=== PATIENT | female | born 1980 | race Caucasian/White ===

== ENCOUNTER 2020-08-07 13:34 | Outpatient (REF) | payer OTHER, SELFPAY ==
--- NOTE | ~2020-08-07 | US_ITS ---
EXAMINATION: US PELVIS CLINICAL INFORMATION: Right lower quadrant COMPARISON: None TECHNIQUE: Transabdominal pelvic ultrasound FINDINGS: The uterus is enlarged and measures 10.5 x 6.1 x 7.2 cm in dimension. There are multiple uterine masses probably representing fibroids, at least 4. The largest measures 8.5, 7.15 7.3 cm and is pedunculated or exophytic to the right upper uterine body and fundus. This may account for palpable right lower quadrant mass. There are 3 exophytic left uterine fibroids measuring 6 x 4.6 x 5.6 cm adjacent to the left uterine fundus, a 5.4 x 4.3 x 5.2 cm adjacent to the left uterine body and 3.9 x 3.8 x 3.7 cm adjacent to the left lower uterine segment and upper cervix. Endometrial thickness is normal measuring 0.8 cm. The ovaries are normal. The right ovary measures 2.8 x 1.5 x 2.4 cm and the left ovary measures 2.8 x 1.6 x 1.7 cm. There is no fluid in the pelvis. US/US pelvic complete IMPRESSION: Enlarged fibroid uterus. Largest fibroid is a 8.6 x 7.1 x 7.3 cm pedunculated fibroid exophytic to the right uterine fundus and upper body. This may account for palpable right lower quadrant mass.
== END 2020-08-07 13:35 | disposition home or self-care (01) ==
LOC: HO.US 13:34
PROVIDERS: PCP Internal Medicine; Visit Provider Internal Medicine
DX: R19.03 Right lower quadrant abdominal swelling, mass and lump (principal)
CPT/HCPCS: 76856

== ENCOUNTER 2021-01-16 12:24 | Outpatient (REF) | payer OTHER, SELFPAY ==
[2021-01-16 14:54] LABS: Thyroid Stimulating Hormone 0.88 uIU/mL (0.32-4.0)
== END 2021-01-16 12:25 | disposition home or self-care (01) ==
LOC: HO.10HDL 12:24
PROVIDERS: Visit Provider Internal Medicine
DX: R00.2 Palpitations (principal); D25.9 Leiomyoma of uterus, unspecified
CPT/HCPCS: 36415; 84443

== ENCOUNTER 2021-03-21 12:41 | Outpatient (REF) | payer OTHER, SELFPAY ==
--- NOTE | ~2021-03-21 | US_ITS ---
EXAMINATION: US PELVIS CLINICAL INFORMATION: Pelvic/right lower quadrant mass. COMPARISON: Previous pelvic ultrasound August 2020 TECHNIQUE: Ultrasound of the pelvis is performed using both transabdominal and transvaginal transducers along with Doppler. Transvaginal imaging is performed due to inadequate visualization transabdominally. The patient could not tolerate transvaginal imaging. FINDINGS: The uterus is slightly enlarged and measures 11 x 5.5 x 11 cm. There are at least five uterine fibroids seen. There is a 6.8 x 5 x 6.7 cm subserosal left upper uterine body or fundal/cornual fibroid. There is a 2.4 x 1.6 x 2 cm submucosal left uterine body fibroid adjacent to the endometrium. There is a 5.9 x 3.8 x 3.9 cm subserosal left lower uterine segment fibroid. There is a 7.8 x 5.9 x 9.6 cm right upper uterine body or fundal exophytic or pedunculated fibroid. There is a 6.2 x 4.2 x 4.4 cm subserosal left uterine body fibroid. Endometrial thickness measures 1 cm. The right ovary is normal-appearing and measures 2.6 x 1.2 x 1.4 cm. The left ovary is not seen. There is a small amount of fluid in the pelvis. US/US pelvic and transvaginal IMPRESSION: Enlarged fibroid uterus. There is a newly appreciated 2.4 x 1.6 x 2 cm submucosal fibroid adjacent to the endometrium. Otherwise, fibroids do not appear appreciably changed. Normal-appearing right ovary. Left ovary not seen. Small amount of fluid in the pelvis.
== END 2021-03-21 12:42 | disposition home or self-care (01) ==
LOC: HO.US 12:41
PROVIDERS: PCP Internal Medicine; Visit Provider Internal Medicine
DX: R19.03 Right lower quadrant abdominal swelling, mass and lump (principal)
CPT/HCPCS: 76830; 76856

== ENCOUNTER 2021-06-21 08:33 | Outpatient (REF) | payer OTHER, SELFPAY ==
--- NOTE | ~2021-06-21 | US_ITS ---
EXAMINATION: US ABDOMEN COMPLETE CLINICAL INFORMATION: Epigastric discomfort. COMPARISON: None TECHNIQUE: Real-time imaging of the abdominal viscera. FINDINGS: PANCREAS: Normal. ABDOMINAL AORTA: The proximal, mid, and distal segments are normal in caliber. INFERIOR VENA CAVA: Visualized portions are normal. LIVER: The liver is normal in size. The liver contour is normal. Parenchymal echogenicity is normal. Multiple simple and minimally complex cysts scattered throughout the liver, largest measures 2.6 cm right lobe. There is no intrahepatic biliary duct dilatation seen. GALLBLADDER: Normal. The gallbladder is physiologically distended without evidence of stones, sludge, polyps, wall thickening or pericholecystic fluid. COMMON BILE DUCT: Normal in caliber measuring 0.4 cm in diameter. RIGHT KIDNEY: Normal. No hydronephrosis. No renal calculi or focal parenchymal lesions. The kidney measures 10.4 cm in maximum dimension. LEFT KIDNEY: Normal. No hydronephrosis. No renal calculi or focal parenchymal lesions. The kidney measures 10.0 cm in maximum dimension. SPLEEN: Normal. The spleen measures 7.6 cm in maximum dimension. FREE FLUID: None. US/US abdomen complete IMPRESSION: Multiple benign hepatic cysts. Exam otherwise unremarkable.
== END 2021-06-21 08:34 | disposition home or self-care (01) ==
LOC: HO.US 08:33
PROVIDERS: Visit Provider Internal Medicine
DX: R10.13 Epigastric pain (principal)
CPT/HCPCS: 76700

== ENCOUNTER 2021-06-27 08:56 | Day surgery (SDC) | payer OTHER, SELFPAY ==
[2021-06-21 13:40] VITALS: BMI 19.1
[2021-06-27 09:13] LABS: UPreg QC Valid YES; Urine Pregnancy NEGATIVE (NEGATIVE)
[2021-06-27 09:23] VITALS: BP 118/74; PULSE 108; RESP 18; TEMP 37.6; O2SAT 98; BMI 18.7
--- NOTE | 2021-06-27 10:19 | HO.ANESPROP2 ---
HPI - Anesthesia Eval Consult details Narrative: 40 yo female patient for EGD, Colonoscopy [facility] Past Medical History Medical History GERD (gastroesophageal reflux disease) History of tachycardia On beta nestor at home Family History Family history of problems with anesthesia: No Surgical History Surgical History No pertinent past surgical history History of Problems with Anesthesia: No Social History Social History Patient Tobacco Use Status: Never used Tobacco Use of substances other than those prescribed or required for medical reasons: No Are you DNR?: No Advance Directives: No Advance Directives Information Provided: Yes Recently lost weight without trying: No Patient : No (ucg) Meds Allergies Allergy/AdvReac Type Severity Reaction Status Date / Time No Known Allergies Allergy Verified 06/21/21 13:29 Active Medications: Current Medications Sodium Biphosphate/Sodium Phosphate (Sodium Phosphate,Parker-Dibasic 133 Ml Enema) 133 ml [place] ONCE PRN PRN Reason: Poor Colonoscopy Prep Results Home Medications Medication Instructions Recorded Confirmed Last Taken Type metoprolol succinate 25 mg 1 tab PO DAILY 06/21/21 06/27/21 06/27/21 History tablet,extended release 24 hr omeprazole 20 mg capsule,delayed 20 mg PO DAILY 06/21/21 06/21/21 Unknown History release Exam Exam Date and Time: June 27, 2021 1019 Height,Weight and Vital Signs: Height 5 ft Weight 43.545 kg Last Vital Signs Temp 99.7 F 06/27/21 09:23 Pulse 108 H 06/27/21 09:23 Resp 18 06/27/21 09:23 BP 118/74 06/27/21 09:23 Pulse Ox 98 06/27/21 09:23 Pertinent Lab Results Pertinent Lab Results: Laboratory Tests 06/27/21 08:59 Urine Test NEGATIVE Assessment and Plan Final Anesthetic Review Family History of Problems with Anesthesia: No History of Problems with Anesthesia: No
[2021-06-27] MEDS: Lactated Ringers 1,000 ML 100 ML IVCONT (11:04)
[2021-06-27 12:15] VITALS: BP 102/54; PULSE 103; RESP 16; TEMP 36.4; O2SAT 100
--- NOTE | 2021-06-27 12:23 | PM.OP ---
Brief Operative Note Date of Service: 06/27/21 Pre-op diagnosis: GERD, Screening Post-op diagnosis: other (Hiatal hernia, R/O celiac disease, Internal hemorrhoids) Procedure: EGD with biopsies, Colonoscopy to the cecum and TI Surgeon: Salvador Cain Anesthesia: MAC Was an Cleaning Team Member used for this Procedure?: No Estimated blood loss (mL): 2.0 Pathology: other (A. Descending duodenum B. Gastric antrum C. EG Junction at 33cm) Condition: stable Disposition: PACU
[2021-06-27 12:30] VITALS: BP 106/69; PULSE 113; RESP 16; O2SAT 99
[2021-06-27 12:45] VITALS: BP 109/76; PULSE 96; PULSE 99; RESP 16; O2SAT 99
--- NOTE | 2021-06-27 23:09 | OP_ITS ---
SURGEON: Salvador Cain MD INDICATIONS: The patient presents for evaluation of gastroesophageal reflux, abdominal discomfort, family history of colon cancer, and colorectal cancer screening. Full consent has been obtained from her for both procedures, including risks of bleeding and perforation. PREOPERATIVE DIAGNOSIS: POSTOPERATIVE DIAGNOSIS: PROCEDURE PERFORMED: Esophagogastroduodenoscopy with biopsies, and colonoscopy to the cecum and terminal ileum. ESTIMATED BLOOD LOSS: COMPLICATIONS: ANESTHESIA: Monitored anesthesia care. ASSISTANTS: SPECIMENS: PREOPERATIVE DIAGNOSES: Gastroesophageal reflux, abdominal discomfort, family history of colon cancer, and colorectal cancer screening. POSTOPERATIVE DIAGNOSES: Gastroesophageal reflux, abdominal discomfort, family history of colon cancer, and colorectal cancer screening, hiatal hernia, rule out celiac disease, internal hemorrhoids. DESCRIPTION OF PROCEDURE: The patient was placed in the left lateral decubitus position. The Olympus video gastroscope was passed in the posterior oropharynx and upper esophagus under direct vision. The scope was passed slowly to the distal esophagus. The gastroesophageal junction appeared at 33 cm. There was some slight irregularity and edema, as well as 1 area of some slight irregularity. There was no evidence of esophagitis nor any definitive evidence of Barajas's mucosa. The scope entered the stomach. There was a small hiatal hernia. The hiatal hernia mucosa appeared normal. The scope was advanced to the pylorus and the duodenum was cannulated to the descending portion. The duodenum including the bulb appeared normal without mass or ulceration. Biopsies were obtained at the 2nd and 3rd portions of duodenum. The scope was withdrawn back into the stomach. The gastric antrum and body appeared normal with good peristalsis. Biopsies were obtained from the gastric antrum. The scope was retroflexed visualizing the proximal stomach carefully, which appeared normal, without any sign of mass or ulceration. The scope was straightened and withdrawn back into the esophagus. Biopsies were obtained at the EG junction at 33 cm. Proximal to this, the esophageal mucosa appeared normal. The scope was withdrawn from the patient. She was turned around for the colonoscopy. The digital rectal exam revealed no abnormalities. The Olympus video pediatric colonoscope was entered into the rectum and advanced easily to the cecum. Once in the cecum, I did identify normal-appearing cecal pouch with appendiceal orifice and a normal-appearing ileocecal valve. The terminal ileum was cannulated and appeared normal. The scope was withdrawn back in the colon. The entire cecum and ileocecal valve appeared normal. The scope was slowly withdrawn assessing all mucosal surfaces carefully. Preparation was excellent. I did not visualize any sign of polyps, colitis, or angiodysplasia. In the rectum, scope was retroflexed visualizing some small internal hemorrhoids, but no other pathology. The rectal mucosa appeared normal. The scope was straightened and withdrawn from the patient. She tolerated both procedures well and was returned to recovery area in stable condition. IMPRESSION: 1. Hiatal hernia, gastroesophageal reflux. 2. Rule out celiac disease. 3. Internal hemorrhoids. PLAN: The results of the biopsies will be checked. In regard to the upper endoscopy findings and her symptoms of intermittent belching, I did recommend she use omeprazole daily for 1 or 2 months to see if that makes an improvement for her given the findings of the hiatal hernia and some changes of reflux. I would recommend a repeat colonoscopy in 5 years given her significant family history of rectal cancer in her mother in her 60s. She was advised to see me later this year for a followup visit as well. This has all been discussed with her mother. MD FAM Silver/MONICA / [id number] MTDD
== END 2021-06-27 13:15 | disposition home or self-care (01) ==
PROVIDERS: Anesthesiology; PCP Internal Medicine; Visit Provider Internal Medicine
PROC: (CPT 45378; principal; 2021-06-27 10:00)
DX: Z12.11 Encounter for screening for malignant neoplasm of colon (principal); Z80.0 Family history of malignant neoplasm of digestive organs; K64.8 Other hemorrhoids; K21.9 Gastro-esophageal reflux disease without esophagitis; R14.0 Abdominal distension (gaseous); K29.80 Duodenitis without bleeding; K44.9 Diaphragmatic hernia without obstruction or gangrene; R00.2 Palpitations; Z79.899 Other long term (current) drug therapy
CPT/HCPCS: 45378; 43239; 81025; 88305; 88342

== ENCOUNTER → 2021-11-26 15:46 | Outpatient (REF) | payer OTHER, SELFPAY ==
--- NOTE | 2021-11-26 15:49 | CA_ITS ---
Transthoracic Echocardiogram Patient (Last, First, Middle): Annelise Santiago, Gender: Female Date of : 1980 Age: 41 Procedure Date: 11/26/2021 Procedure Type: Transthoracic Echocardiogram Location: OP Height: 152.4 cm Weight: 44. kg BSA: 1.37 m2 Heart Rate: bpm BP: 108 / 83 mmHg Stockbroker: GAURANG Referring MD: Nuvia Rasmussen MD Symptoms: TACHYCARDIA Study Quality: Adequate ECG Rhythm: Sinus Conclusions: - The left ventricular systolic function is normal. The calculated ejection fraction is 66% by biplane method. - No obvious valvular pathology seen on this study. Findings Left Ventricle Normal left ventricular cavity size. There is normal left ventricular wall thickness. The left ventricular systolic function is normal. The calculated ejection fraction is 66% by biplane method. There is no evidence of regional wall motion abnormalities. Diastolic function is normal for age. Right Ventricle Normal right ventricular cavity size and systolic function. Atria Both atria are normal in size. Aortic Valve There is a normal trileaflet aortic valve. There is no aortic valve stenosis. There is no aortic valve regurgitation. Mitral Valve The mitral valve appears normal. There is trace mitral valve regurgitation. There is no mitral valve stenosis. Pulmonic Valve The pulmonic valve is likely normal. Tricuspid Valve There is trace tricuspid valve regurgitation. There is no evidence of pulmonary hypertension. Great Vessels The asc aorta is normal in size. Venous The inferior vena cava is normal in size and collapses greater than 50% with inspiration. Pericardium/Pleural There is no evidence of pericardial effusion. Prior Study Comparison No prior study available for comparison. Recommendations, Care & Conclusions No obvious valvular pathology seen on this study. Measurements 2D Linear Measurements IVSd: 0.64 0.6-0.9/0.6-1.0 cm LVIDd: 3.71 3.9-5.3/4.2-5.9 cm LVIDd Index: 2.71 2.4-3.2/2.2-3.1 cm/m2 LVIDs: 1.98 2.0-3.6 cm LVPWd: 0.66 0.7-1.1 cm LA Diam: 2.90 2.7-3.8/3.0-4.0 cm LAIDs Index: 2.12 1.5-2.3 cm/m2 LV Mass: 77.36 67-162/88-224 g LV Mass Index: 56.47 43-95/49-115 g/m2 LVOT Diam: 1.70 3.0+(-)1.3 cm 2D Systolic Function EF 4C: 62.00 >55% EF 2C: 67.50 >55% EF BiP: 65.50 >55% Mitral Valve MV Pk E: 1.17 MV PK A: 0.54 MV Decel Time: 143.00 E/A: 2.20 E'Lateral: 17.60 E'Medial: 12.60 E/E' Med: 9.30 E/E' Lat: 6.60 PHT: 43.00 MVA PHT: 5.12 Decel [place]: 7.25 Aortic Valve AoV Pk Shlomo: 1.22 AoV Mn Shlomo: 0.86 AoV VTI: 0.27 AoV Pk Grad: 6.00 Aov Mn Grad: 3.00 SUSAN Cont.VTI: 1.95 LVOT LVOT Pk Shlomo: 1.10 LVOT Mn Shlomo: 0.78 LVOT VTI: 0.23 LVOT Pk Grad: 5.00 LVOT Mn Grad: 3.00 LVOT Diam: 1.70 LVOT Area: 2.27 Diastolic Function MV Pk E: 1.17 MV Pk A: 0.54 E/A: 2.20 E'Medial: 12.60 E/E' Med: 9.30 E' Laterial: 17.60 E/E' Lat: 6.60 Right Ventricle TAPSE (mm): 23.10 TVS' Shlomo: 11.30 Tricuspid Valve TR Pk Shlomo: 2.05 TR Pk Grad: 17.00 RA Press: 3.00 RVSP: 20.00 Great Vessels Aorta Sinus of Valsalva: 2.28 2.0-3.[address] [place]: 1.81 1.7-3.4 cm Ao Asc: 2.40 2.1-3.4 cm Updated in Other Vendor System with Status of Final El Middleton MD electronically signed on 11/27/2021 4:58:14 PM with status of Final
== END ==
LOC: HO.CARD 15:46
PROVIDERS: PCP Internal Medicine; Visit Provider Internal Medicine
DX: R00.0 Tachycardia, unspecified (principal)
CPT/HCPCS: 93306

== ENCOUNTER 2023-08-25 13:31 | Outpatient (REF) | payer OTHER, SELFPAY ==
--- NOTE | ~2023-08-25 | US_ITS ---
EXAMINATION: ULTRASOUND PELVIC, COMPLETE CLINICAL INFORMATION: Fibroid uterus COMPARISON: Ultrasound of pelvis March 21, 2021 TECHNIQUE: Transabdominal ultrasound only. Transvaginal study declined by the patient. Spectral Doppler and color Doppler exam was utilized. LMP: 07/29/2023 FINDINGS: UTERUS: Multiple uterine fibroids: 1. Left fundal. 6.6 x 6.4 x 7.9 cm. Previous measurement 6.8 x 5 x 6.7 cm. 2. Mid body. 2.6 x 2 cm. Previous measurement 2 x 1.6 x 2 cm. 3. Left proximal body. 4.9 x 3.4 x 4.5 cm. Previous measurement 5.9 x 3.8 x 3.9 cm. 4. Right-sided pedunculated fibroid. 8.1 x 6.8 x 9.3 cm. Previous measurement 7.8 x 5.9 x 9.6 cm. 5. Proximal left-sided fibroid. 6.4 x 4.7 x 5.1 cm. Previous measurement 6.2 x 4.2 x 4.4 cm. 6. Right fundal. 6 x 4.3 x 6 cm. This was previously not measured. The uterus measures 13 x 7 x 7.1 cm. Total uterine volume 343 mL. Uterus previously measured 11 x 5.5 x 11 cm. Prior uterine volume 345 mL. Endometrial thickness 1.2 cm. ADNEXA: Ovarian vascularity:Doppler demonstrates both arterial and venous vascular flow in the right and left ovary. No evidence of ovarian torsion. Right Ovary: 4.6 x 2.8 x 2.2 cm. Volume 14.8 mL. Previous measurement 2.6 x 1.2 x 1.4 cm. Left Ovary: 2.4 x 2.3 x 1.8 cm. Volume 5.2 mL. Previous measurement 2.8 x 1.2 x 1.7 cm. Cul-de-sac: No Fluid US/US pelvic complete IMPRESSION: Multiple uterine fibroids.
== END 2023-08-25 13:32 | disposition home or self-care (01) ==
LOC: HO.US 13:31
PROVIDERS: PCP Internal Medicine; Visit Provider Internal Medicine
DX: D25.9 Leiomyoma of uterus, unspecified (principal)
CPT/HCPCS: 76856